=== PATIENT | female | born 1945 | race Caucasian/White ===

== ENCOUNTER 2018-04-25 10:32 | Emergency (ER) | payer MEDICARE ==
[2018-04-25] MEDS ORDERED: ONDANSETRON 4 MG ORAL DISINTEGRATING TAB (Q0162 PER 1MG) PO (11:45)
[2018-04-25] MEDS ORDERED: PANTOPRAZOLE 40MG TAB (PROTONIX) PO (11:45)
[2018-04-25 12:18] LABS: BASO # 0.1 10^3/uL (0.0-0.2); BASO % 0.6 % (0.0-1.0); EOS # 0.4 10^3/uL (0.0-0.50); EOS % 3.2 % (0.0-3.0); HEMOGLOBIN 14.3 g/dl (12.0-15.5); IMMATURE GRANULOCYTE % 0.4 % (0-3.0); LYMPH # 2.5 10^3/uL (1.5-4.5); LYMPH % 20.7 % (24.0-44.0); MEAN CORPUSCULAR HEMOGLOBIN 30.4 pg (27.0-33.0); MEAN CORPUSCULAR HGB CONC 32.5 g/dl (32.0-36.5); MEAN CORPUSCULAR VOLUME 93.6 fl (80.0-96.0); MONO # 0.8 10^3/uL (0.0-0.8); NEUTROPHILS # 8.1 10^3/uL (1.8-7.7); NEUTROPHILS % 68.1 % (36.0-66.0); PLATELET COUNT, AUTOMATED 235 10^3/uL (150-450); RED CELL DISTRIBUTION WIDTH 13.2 % (11.5-14.5); WHITE BLOOD COUNT 11.9 10^3/uL (4.0-10.0)
[2018-04-25] MEDS: GI COCKTAIL 50ML BTL(HYOSCYAMINE/MAALOX/LIDOCAINE VISCOUS)(1:3:1) PO (12:43)
[2018-04-25] MEDS: ONDANSETRON 4MG/2ML VIAL (J2405) IV (12:43)
[2018-04-25] MEDS: PANTOPRAZOLE 40MG INJ (PROTONIX) (C9113) IV (12:44)
[2018-04-25] MEDS: IPRATROPIUM 0.5MG/ALBUTEROL 2.5MG INH SOL UD 3ML (DUONEB)(J7620) NEB (12:47)
[2018-04-25] MEDS: NS 1,000 ML IV (12:47)
[2018-04-25 12:57] LABS: ALBUMIN 4.2 GM/DL (3.2-5.2); ALBUMIN/GLOBULIN RATIO 1.35 (1.00-1.93); ALKALINE PHOSPHATASE 109 U/L (45-117); ALT/SGPT 32 U/L (12-78); ANION GAP 6 MEQ/L (8-16); AST/SGOT 18 U/L (7-37); BILIRUBIN,TOTAL 0.6 MG/DL (0.2-1.0); BLOOD UREA NITROGEN 16 MG/DL (7-18); CALCIUM LEVEL 10.4 MG/DL (8.8-10.2); CARBON DIOXIDE LEVEL 30 MEQ/L (21-32); CHLORIDE LEVEL 105 MEQ/L (98-107); CREATININE FOR GFR 0.82 MG/DL (0.55-1.30); GLOMERULAR FILTRATION RATE > 60.0 (>39); GLUCOSE, FASTING 93 MG/DL (70-100); LIPASE 133 U/L (73-393); POTASSIUM SERUM 4.3 MEQ/L (3.5-5.1); SODIUM LEVEL 141 MEQ/L (136-145); TOTAL PROTEIN 7.3 GM/DL (6.4-8.2)
[2018-04-25 13:44] LABS: INFLUENZA A AMPLIFICATION NEGATIVE (NEGATIVE); INFLUENZA B AMPLIFICATION NEGATIVE (NEGATIVE)
[2018-04-25 13:49] LABS: CK-MB VALUE MASS < 1.0 NG/ML (<3.6); CPK CREATINE PHOSPHOKINASE 47 U/L (26-192); MB/CK RELATIVE INDEX 2.13 (< OR =4); TROPONIN I < 0.02 NG/ML (< 0.10)
== END 2018-04-25 14:22 | disposition home or self-care (01) ==
LOC: M ED 10:32
DX: R00.1 Bradycardia, unspecified (principal); K21.0 Gastro-esophageal reflux disease with esophagitis; B37.0 Candidal stomatitis; B34.9 Viral infection, unspecified; E78.5 Hyperlipidemia, unspecified; Z87.891 Personal history of nicotine dependence; I70.0 Atherosclerosis of aorta; M51.34 Other intervertebral disc degeneration, thoracic region; Z79.899 Other long term (current) drug therapy
CPT/HCPCS: C9113

== ENCOUNTER → 2019-05-26 | Outpatient (CLI) | payer MEDICARE ==
[~2019-05-26] MED LIST: CALC1TAB11 PO; LEVO150T7 PO; LIDO1SOL8 PO; LIPI80TA PO; MAPA500C PO; MOBI15TA PO; NEXI20CA PO; NYST50SS PO; OMEP40CA97 PO; PROAAER10 INH; PROZ20CA11 PO; SENN8.6C PO; VITA100021 PO
--- NOTE | 2019-05-29 15:21 | SLEEPCENT ---
DATE OF PROCEDURE: 05/26/2019 ORDERED BY: FLAKO Mares Nocturnal polysomnography was performed for evaluation of sleep physiology in this patient with a history of excessive somnolence, morning headaches and nonrestorative sleep. 8 hours and 11 minutes of data were reviewed. There were 330.5 minutes of sleep identified. Sleep latency was prolonged and 61.5 minutes. Rapid eye movement (REM) latency was normal at 102 minutes. Sleep architecture was fair but there was a period of wake between 3:00 and 4:15 resulting in reduced sleep efficiency of 68%. The electrocardiogram showed sinus rhythm throughout with an average heart rate of 58 beats per minute. Rate ranged 50 to 78. Electroencephalogram (EEG) showed reasonably normal waveforms for awake and sleep. There were only four hypopneic respiratory events identified of 10 seconds in duration or greater for an apnea-hypopnea index well within normal limits 0.7. Significant snoring was however noted over the course of the study and respiratory related arousals occurred 5.4 times per hour. There were occasions where the saturation drifted below 90%. There was also some activity seen in the limb EMG leads with a limb movement arousal index of 8.5. IMPRESSION: Nocturnal polysomnography with snoring. RECOMMENDATIONS: Interventions to optimize upper airway tone may improve the snoring problem.
== END ==
LOC: M SLEEP 20:00
PROVIDERS: ATTEND Physician Assistant
DX: R06.83 Snoring (principal)